=== PATIENT | female | born 1935 ===

== ENCOUNTER → 2020-02-12 | Outpatient (CLI) | payer OTHER ==
[~2020-02-12] VITALS: Ht 180.3 cm; Wt 83.6 kg
[~2020-02-12] MED LIST: ALL DAY ALLERGY10 M3 PO; AMITRIPTYLINE H25 M4 PO; CALCIUM AMINO200 MG PO; COZAAR 50 MG TA50 M1 PO; FISH OIL 1,0001 EAC9 PO; FOLIC ACID1 MG PO; LIPITOR10 MG PO; NAPROXEN375 MG PO; SUPER B COMPLE1 EAC2 PO; SUPER THERAVIT1 EACH PO; VITAMIN B12-FO1 EAC1 PO; VITAMIN D3 COM1 EACH PO; ZINC50 MG PO
--- NOTE | ~2020-02-12 | HPC ---
[facility] [address] [place] [address] PAIN MANAGEMENT CONSULTATION Name: JESUS COX Room #: REG [facility].#: [id number] Admission: 02/12/20 Attend Phys: Niles Mascorro DO Discharge: Date of : 35 Report #: [id number] THIS REPORT FOR: cc: ROSEY - No family physician/PCP ROSEY - No family physician/PCP Niles Mascorro DO ~ CC: [facility] physician/PCP Niles Grimm DATE OF SERVICE: 02/12/2020 CHIEF COMPLAINT: Low back pain, left lower extremity pain and paresthesias. HISTORY OF PRESENT ILLNESS: As you know, the patient is a very pleasant 84-year-old female who has been referred to our service by her neurosurgeon, Dr. Donn Grimm to undergo lumbar epidural injection under fluoroscopic guidance to address lumbar radicular symptoms. The patient was seen by Dr. Grimm on 01/27/2020 for surgical discussions. It would appear the patient was not a surgical candidate based on the dictation presented as part of the preliminary paperwork. She was subsequently referred to our clinic to discuss the possibility of undergoing a lumbar epidural injection to address lumbar radicular symptoms. The patient states pain has been present for over a year. She denies injury or trauma that may have led to symptom development. The patient indicates today pain is continuous. She describes the pain as shooting, aching, throbbing, sharp, numbness and tingling. She places current pain score at 3/10, daily average at 5/10, worst pain has been is 7/10. The patient states that standing for any length of time, sitting for any length of time and ambulating tends to exacerbate symptoms. Nothing other than naproxen has been helpful for pain control. She has been referred to our service to discuss epidural injections under fluoroscopic guidance to address lumbar radicular pain. PAST MEDICAL HISTORY: 1. Dyslipidemia. 2. Hypertension. 3. Anxiety disorder. 4. Osteoarthritis. PAST SURGICAL HISTORY: Cataract surgery. SOCIAL HISTORY: The patient denies tobacco, alcohol, IV or illicit drug use. She is a retired housewife/. 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 She is accompanied by her daughter present in room today. She is not receiving workmen's compensation nor she is trying to obtain disability benefits. She is [address] [address] PAIN MANAGEMENT CONSULTATION Name: JESUS COX Room #: REG NAYE Batista#: [id number] Admission: 02/12/20 Attend Phys: Niles Mascorro DO Discharge: Date of : 35 Report #: [id number] not in litigation in regards to pain. ALLERGIES: No known drug allergies. CURRENT MEDICATIONS: Zinc gluconate 50 mg once a day, vitamin B complex 1 tab per day, multivitamin 1 tab per day, folic acid 1 mg once a day, cyanocobalamin 2000 mcg per day, omega-3 fish oil 1200 mg once a day, cetirizine 10 mg p.o. every day, naproxen 375 mg once a day, losartan 75 mg once a day, amitriptyline 25 mg once a day, atorvastatin 10 mg per day. IMAGING: MRI lumbar spine obtained 12/24/2019 shows an old compression fracture at L1 with mild retropulsion. There is mild superior L3 wedge compression fracture, appears chronic in nature. There are degenerative changes throughout the lumbar spine with congenitally short pedicles. There is mild anterior subluxation of L3 on L4, mild retrolisthesis of L4 on L5, mild L2-L3 and L3-L4 spinal stenosis. There is no significant neural foraminal stenosis. PQRS: The patient has known arthritic changes of the bilateral knees, right greater than left, bilateral hands and lumbar spine. No rheumatoid arthritis. She is placing current pain score 5/10. She is a fall risk, but has not had a fall in last 3 months. She utilizes a cane for ambulation and balance. She is not on blood thinners, but is treated for hypertension. She is not on chronic opioids and has a low opioid addiction potential. Pain impact score is 8 of 70 indicating mild interference of daily activities secondary to pain. PHYSICAL EXAMINATION: VITAL SIGNS: Blood pressure 130/67, pulse 90, respiratory rate 16 and unlabored. The patient is 100% on room air. Height 5 feet 11 inches tall, weight 184.4 pounds, BMI calculated 25.7. GENERAL: Well-developed, well-nourished, well-hydrated 84-year-old female, appears stated age, placing current pain score at 5/10. HEENT: Normocephalic, atraumatic. Pupils equal, round, reactive to light. Extraocular muscles are intact. Sclerae nonicteric without injection. NEUROLOGIC: Cranial nerves 2-12 grossly intact. Speech fluent. The patient deemed a good historian. LUNGS: Clear, no wheeze, rhonchi or rales. CARDIOVASCULAR: Regular. No appreciable gallop or rub. ABDOMEN: Soft. Normoactive bowel sounds. EXTREMITIES: Show no clubbing, no cyanosis, and no edema. MUSCULOSKELETAL: Lower extremity strength equal and symmetrical 5/5. She is intact to light touch from L1 through S2 dermatomes. Seated straight leg raising negative. Supine straight leg raising positive on the left. Mena's test is negative. Modified Gaenslen's positive for axial low back pain. Ankle clonus negative. Babinski is negative. Deep tendon reflexes 2+/4 at patella and Achilles. Lumbar provocation testing is met with slight increase in axial back pain, no radiation of symptoms. [facility] [address] [place] [address] PAIN MANAGEMENT CONSULTATION Name: KENNYJESUS Room #: REG [facility] Lester#: [id number] Admission: 02/12/20 Attend Phys: Niles Mascorro DO Discharge: Date of : 35 Report #: [id number] ASSESSMENT: 1. Symptomatic lumbar radiculopathy. 2. Displacement of lumbar intervertebral disk with radiculopathy. 3. Lumbosacral spondylosis with radiculopathy. 4. Lumbar degeneration. 5. Chronic intractable pain. PLAN: 1. The patient has been referred to our service to discuss the treatment options for lumbar radicular symptoms. The patient saw Dr. Donn Grimm at visit of 01/27/2020 where she was advised to trial conservative treatment options. It does appear that at present she is not a surgical candidate given the lack of any major lateralizing features in her MRI. She was subsequently referred to our clinic to discuss the treatment options for lumbar radiculopathy. We discussed the following with the patient today. We discussed physical therapy, stretching exercises, and core strengthening techniques as a treatment course. We discussed medication management utilizing neuropathic pain medications such as nortriptyline, amitriptyline, Cymbalta, Lyrica or gabapentin. We discussed lumbar epidural injection for which the patient was referred to our clinic and finally surgical options of either spinal cord stimulator or decompressive surgery via Neurosurgery. After reviewing the risks and benefits of all proposed treatment options, the patient chose to undergo lumbar epidural injection under fluoroscopic guidance. 2. The patient was advised due to third alliance party payer restrictions, authorization would have to be obtained before she could undergo a lumbar epidural injection. Authorization process may take anywhere from 3-7 working days. We will begin this process immediately. We will have the patient return once we have completed this process. We have tentatively placed the patient on an appointment time of next Monday, but certainly we will adjust the date if we are able to obtain this authorization earlier. No medication changes made at today's visit. The patient will continue current medical therapy as previously prescribed. 3. We will see the patient back in followup visit once we have achieved authorization for her to undergo a first in the series of lumbar epidural injections to address lumbar radicular symptoms involving the low back and left lower extremity. 4. We wish to thank Dr. Donn Grimm for the referral of the patient to our clinic. We will keep you apprised of response to treatment as we address lumbar radicular symptoms. Again, we wish to thank you for the opportunity to see this patient in consultation. By: [id number] Niles Mascorro DO /nt
[2020-02-12 13:00] VITALS: BP 138/67
--- NOTE | 2020-02-12 13:14 | NUR ---
Pain Clinic Assessment: 1. History of Osteoarthritis: RIGHT KNEE HANDS History of Rheumatoid Arthritis: 2. Height: 5 ft. 11 in. 180.3 cm. Weight: 184.4 lb. oz. 83.643 kg. Patient's BMI: 25.7 3. Vital Signs: BP: 138/67 Pulse: 90 Resp: 16 Temp: 02 Sat: 100 ECG Mon: 4. Pain Intensity: 5 5. Fall Risk: Dizziness: Y Needs help standing or walking: Y Fallen in the last 3 months: N Fall risk comments: 6. Patient on Blood Thinner: None 7. History of Hypertension: Y 8. Opioid Therapy greater than 6 weeks: N Opiate Contract Signed: 9. Risk Assessment Tool Provided: 0-LOW RISK 10. Functional Assessment Tool: 11. Recreational Drug Use: Never Drug Type: Tobacco Use: Never Smoker Tobacco Type: Amount or Packs/day: How Many Years: Alcohol Use: No Frequency: Quant:
== END ==
LOC: PAIN 06:53
DX: M51.16 Intervertebral disc disorders with radiculopathy, lumbar region (principal); M47.27 Other spondylosis with radiculopathy, lumbosacral region; I10 Essential (primary) hypertension; F41.9 Anxiety disorder, unspecified; M19.90 Unspecified osteoarthritis, unspecified site; E78.5 Hyperlipidemia, unspecified; G89.29 Other chronic pain; G31.89 Other specified degenerative diseases of nervous system; Z79.84 Long term (current) use of oral hypoglycemic drugs; Z79.811 Long term (current) use of aromatase inhibitors; Z79.899 Other long term (current) drug therapy

== ENCOUNTER → 2020-02-18 | Outpatient (CLI) | payer OTHER ==
[~2020-02-18] VITALS: Ht 152.4 cm; Wt 83.5 kg
[2020-02-18 12:49] VITALS: BP 134/69
--- NOTE | 2020-02-18 12:55 | NUR ---
Pain Clinic Assessment: 1. History of Osteoarthritis: RIGHT KNEE HANDS History of Rheumatoid Arthritis: 2. Height: 5 ft. 3 in. 160.0 cm. Weight: 134.0 lb. oz. 60.782 kg. Patient's BMI: 23.7 3. Vital Signs: BP: 134/69 Pulse: 79 Resp: 16 Temp: 02 Sat: 97 ECG Mon: 4. Pain Intensity: 9-10 5. Fall Risk: Dizziness: N Needs help standing or walking: Y Fallen in the last 3 months: Y Fall risk comments: 6. Patient on Blood Thinner: None 7. History of Hypertension: Y 8. Opioid Therapy greater than 6 weeks: N Opiate Contract Signed: 9. Risk Assessment Tool Provided: 0-LOW RISK 10. Functional Assessment Tool: 11. Recreational Drug Use: Never Drug Type: Tobacco Use: Never Smoker Tobacco Type: Amount or Packs/day: How Many Years: Alcohol Use: No Frequency: Quant:
[2020-02-18 13:25] VITALS: BP 147/72
--- NOTE | 2020-02-18 14:07 | NUR ---
Pain Clinic Assessment: 1. History of Osteoarthritis: Not Applicable History of Rheumatoid Arthritis: Not Applicable 2. Height: 5 ft. 0 in. 152.4 cm. Weight: 184.0 lb. oz. 83.462 kg. Patient's BMI: 35.9 3. Vital Signs: BP: 147/72 Pulse: 84 Resp: 16 Temp: 02 Sat: 98 ECG Mon: 4. Pain Intensity: 5 5. Fall Risk: Dizziness: N Needs help standing or walking: Y Fallen in the last 3 months: N Fall risk comments: 6. Patient on Blood Thinner: None 7. History of Hypertension: Y 8. Opioid Therapy greater than 6 weeks: N Opiate Contract Signed: 9. Risk Assessment Tool Provided: 10. Functional Assessment Tool: 11. Recreational Drug Use: Never Drug Type: Tobacco Use: Never Smoker Tobacco Type: Amount or Packs/day: How Many Years: Alcohol Use: No Frequency: Quant:
--- NOTE | 2020-02-19 11:57 | HPC ---
[facility] [place] [address] PAIN MANAGEMENT CONSULTATION Name: JESUS COX Room #: REG [facility] M..#: [id number] Admission: 02/18/20 Attend Phys: Niles Mascorro DO Discharge: Date of : 35 Report #: [id number] THIS REPORT FOR: cc: FAM - No family physician/PCP FAM - No family physician/PCP Niles Mascorro DO ~ DATE OF SERVICE: 02/18/2020 CHIEF COMPLAINT: Low back pain, bilateral lower extremity pain with paresthesias, left greater than right. HISTORY OF PRESENT ILLNESS: As you know, the patient is a very pleasant 84-year-old female referred to our service by her neurosurgeon, Dr. Donn Grimm to undergo lumbar epidural injection under fluoroscopic guidance to address lumbar radicular symptoms. We saw the patient in consultation per the request of Dr. Grimm on 02/12/2020. Due to third libertarian payer restrictions, authorization had to be obtained before the patient could undergo a lumbar epidural injection. She returns today in followup visit 02/18/2020, having received authorization to undergo epidural injection. She is placing her current pain score of 5/10. States the majority of her symptoms today are involving low back and the right lower extremity, though at our last visit, it was involving more the left lower extremity. She indicates that the pain is aching, intermittent and throbbing in sensation, exacerbated with weather and activities, improves with rest and medications. She returns today in followup visit with authorization to undergo lumbar epidural injection under fluoroscopic guidance. ALLERGIES: No known drug allergies. CURRENT MEDICATIONS: See chart. SOCIAL HISTORY: The patient denies tobacco, alcohol, IV or illicit drug use. 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 IMAGING: No new imaging available. PQRS: The patient has known arthritic changes of bilateral knees, bilateral hands and lumbar spine. No rheumatoid arthritis. She is placing her current pain score 5/10. She is a fall risk, but has not had a fall in last 3 months. She is utilizing ambulatory devices for balance. She is not on blood thinners, but is treated for hypertension. She is not on chronic opioids, has a low opioid addiction potential based on our assessment tool. Pain impact is 8 of 70 indicating mild interference of daily activities [place] [address] PAIN MANAGEMENT CONSULTATION Name: JESUS COX Room #: REG [facility] Batista#: [id number] Admission: 02/18/20 Attend Phys: Niles Mascorro DO Discharge: Date of : 35 Report #: [id number] PHYSICAL EXAMINATION: VITAL SIGNS: Blood pressure 147/72, pulse 84, respiratory rate 16 and unlabored. The patient is 98% on room air. Height 5 feet 4 inches tall, weighs 184 pounds, BMI calculated 35.9. GENERAL: Well-developed, well-nourished, well-hydrated exogenously obese 84-year-old female appearing stated age, pain is rated today 5/10. HEENT: Normocephalic, atraumatic. Pupils equal, round, reactive to light. Speech fluent. EXTREMITIES: Show no clubbing, no cyanosis, and no edema. MUSCULOSKELETAL: Seated straight leg raising negative. Supine straight leg raising remains positive on the left and mildly positive on the right. Mena's test negative. Modified Gaenslen's positive for axial low back pain. Ankle clonus negative. Babinski is negative. Gait appears slightly antalgic favoring right lower extremity today. Deep tendon reflexes remain 2+/4 bilaterally. ASSESSMENT: 1. Symptomatic lumbar radiculopathy. 2. Displacement of lumbar intervertebral disk with radiculopathy. 3. Lumbosacral spondylosis with radiculopathy. 4. Lumbar degeneration. 5. Chronic intractable pain. PLAN: 1. The patient returns today in followup visit having received authorization to undergo lumbar epidural injection under fluoroscopic guidance to address the request of Dr. Donn Grimm. The patient was advised of the risks and the benefits of a lumbar epidural injection. These risks include but are not necessarily limited to bleeding, bruising, infection, worsening pain, no relief of pain, temporary or permanent muscle weakness, temporary or permanent nerve damage, possible paralysis, post-dural puncture headache and . The patient states understood and wished to proceed. 2. No medication changes made at today's visit. 3. We will see the patient back in followup visit on an as needed basis for possible next in the series of lumbar epidural injections. PROCEDURE NOTE DESCRIPTION OF PROCEDURE: L5-S1 parasagittal epidural steroid injection under fluoroscopic guidance. This is the first procedure of the first series that the patient is undergoing. After obtaining written consent, the patient was taken back to the fluoroscopy suite, placed in a prone position with pillow under the abdomen to decrease lumbar lordosis. The skin overlying the lumbosacral area was then prepped and draped in aseptic fashion. The L5-S1 vertebral interspace was then identified [address] [address] PAIN MANAGEMENT CONSULTATION Name: JESUS COX Room #: REG NAYE Batista#: [id number] Admission: 02/18/20 Attend Phys: Niles aMscorro DO Discharge: Date of : 35 Report #: [id number] by AP fluoroscopy. The skin and subcutaneous tissue overlying the target site of injection was anesthetized with 3 mL 1% lidocaine. A 20-gauge 3-1/2 inch Tuohy needle was then advanced under fluoroscopic guidance towards the epidural space using a parasagittal approach. The epidural space was identified using loss of resistance to air technique. After negative aspiration for heme or cerebrospinal fluid, a total of 1 mL of Omnipaque was injected. A lumbar epidurogram was confirmed using both AP and lateral fluoroscopy. After negative aspiration for heme or cerebrospinal fluid, 5 mL of a solution containing 2 mL 40 mg per mL, 80 mg total triamcinolone along with 3 mL lidocaine 1% was injected in increments. Contrast spread was noted posterior epidural space. The needle was then retracted approximately half way and needle tract flushed with 1 mL of 1% lidocaine. Needle was then removed. There were no apparent sensory or motor deficits in the lower extremity following the procedure. A sterile bandage was placed over the injection site. The heart rate, pulse, oximetry and blood pressure were continuously monitored after the procedure. There were no apparent complications. The patient tolerated the procedure well and was carefully escorted to the recovery room in stable condition. There were no apparent complications. After meeting discharge criteria, the patient was then discharged home. <ELECTRONICALLY SIGNED> By: Niles Mascorro DO 02/19/20 [id number] Niles Mascorro DO /dominic
== END | disposition home or self-care (01) ==
LOC: PAIN 06:42
DX: M51.16 Intervertebral disc disorders with radiculopathy, lumbar region (principal); M47.27 Other spondylosis with radiculopathy, lumbosacral region; G89.29 Other chronic pain; Z98.890 Other specified postprocedural states; Z79.899 Other long term (current) drug therapy

== ENCOUNTER → 2020-07-01 | Outpatient (CLI) | payer OTHER ==
[~2020-07-01] VITALS: Ht 152.4 cm; Wt 84.3 kg
[~2020-07-01] MED LIST changes: +VOLTAREN GEL 1100 G1 TOP
[2020-07-01 14:38] VITALS: BP 154/87
--- NOTE | 2020-07-01 14:50 | NUR ---
Pain Clinic Assessment: 1. History of Osteoarthritis: Not Applicable History of Rheumatoid Arthritis: Not Applicable 2. Height: 5 ft. 0 in. 152.4 cm. Weight: 185.8 lb. oz. 84.278 kg. Patient's BMI: 36.3 3. Vital Signs: BP: 154/87 Pulse: 85 Resp: 16 Temp: 02 Sat: 98 ECG Mon: 4. Pain Intensity: 8-9 5. Fall Risk: Dizziness: N Needs help standing or walking: N Fallen in the last 3 months: N Fall risk comments: 6. Patient on Blood Thinner: None 7. History of Hypertension: Y 8. Opioid Therapy greater than 6 weeks: N Opiate Contract Signed: 9. Risk Assessment Tool Provided: 0-LOW RISK 10. Functional Assessment Tool: 11. Recreational Drug Use: Never Drug Type: Tobacco Use: Never Smoker Tobacco Type: Amount or Packs/day: How Many Years: Alcohol Use: No Frequency: Quant:
--- NOTE | 2020-07-07 12:21 | HPC ---
[facility] [place] [address] PAIN MANAGEMENT CONSULTATION Name: JESUS COX Room #: REG [facility]..#: [id number] Admission: 07/01/20 Attend Phys: Niles Mascorro DO Discharge: Date of : 35 Report #: [id number] THIS REPORT FOR: cc: FAM - No family physician/PCP FAM - No family physician/PCP Niles Mascorro DO ~ DATE OF SERVICE: 07/01/2020 REFERRING PHYSICIAN: Donn Grimm M.D. CHIEF COMPLAINT: Right knee pain. HISTORY OF PRESENT ILLNESS: As you know, the patient is a very pleasant 84-year-old female who was referred to our service by her neurosurgeon, Dr. Donn Grimm to undergo lumbar epidural injections under fluoroscopic guidance to address lumbar radicular pain. The patient has done very well with epidural injections, the most recent provided in January gave significant pain improvement. The patient reports pain improvement that is ongoing of about 90%. She has begun to experience posterior right knee pain exacerbated with standing and walking. Pain is resolved with sitting and lying down. This distribution of symptoms is different from her lumbar radicular symptoms. She denies injury or trauma to the area, but has been diagnosed with osteoarthritic changes of the bilateral knees in the past. She returns today to discuss treatment options for right posterior knee pain. ALLERGIES: No known drug allergies. CURRENT MEDICATIONS: Amitriptyline 25 mg p.o. at bedtime, losartan 50 mg once a day, multivitamin 1 tab per day, calcium carbonate 1 tab per day, cyanocobalamin 1 tablet per day, folic acid 1 mg once a day, vitamin C 1 tab per day. SOCIAL HISTORY: The patient denies tobacco, alcohol, IV or illicit drug use. 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 IMAGING: No new imaging available. PQRS: The patient has known arthritic changes of bilateral knees, bilateral hands and lumbar spine. No rheumatoid arthritis. She is placing pain intensity 8-9/10. She is not a fall risk nor has she had a fall in last 3 months. She is not on blood thinners, but she was treated for hypertension. She is not on chronic opioids. She has a low opiate addiction potential. Pain impact score 8 of 70 indicating mild interference of daily activities secondary to pain. PHYSICAL EXAMINATION: [facility] [address] [place] [address] PAIN MANAGEMENT CONSULTATION Name: JESUS COX Room #: REG [facility] [place]#: [id number] Admission: 07/01/20 Attend Phys: Niles Mascorro DO Discharge: Date of : 35 Report #: [id number] VITAL SIGNS: Blood pressure 154/87, pulse 85, respiratory rate 16 and unlabored. The patient is 98% on room air. Height 5 feet tall, weight 185.8 pounds, BMI calculated 36.3. GENERAL: Well-developed, well-nourished, well-hydrated exogenously obese 84-year-old female appearing stated age, pain is rated anywhere from 8-9/10. HEENT: Normocephalic, atraumatic. Pupils equal, round and reactive. Speech fluent. EXTREMITIES: Show no clubbing, no cyanosis, no edema. MUSCULOSKELETAL: The patient does have some palpatory tenderness over the posterior aspect of the knee. There is a small fluid collection in the posterior knee consistent with a Richard cyst. Active and passive range of motion of the right knee causes slight intensification of pain. Anterior and posterior drawer tests are negative. Medial collateral and lateral collateral ligaments appear intact and stable. Pain is elicited with standing from a seated position as well as ambulating. Slight rotation of the knee while standing causes intensity of pain is about a level of 9/10 right in the posterior aspect of the knee. ASSESSMENT: 1. Right knee pain. 2. Right knee osteoarthritis. 3. Possible right knee meniscal injury. PLAN: 1. The patient has returned today with right knee pain consistent with a possible meniscal injury. She also has what appears to be a Richard cyst forming on the posterior aspect of the right knee, again consistent with a meniscal injury. The patient and I discussed this at length today. The fact that she experiences pain exacerbated with standing, walking, improves with lying down and seated position is even more consistent with right knee pathology. We recommend the following treatment option. 2. The patient will be sent for x-ray imaging of the right knee. X-ray imaging will be obtained today and results can be provided to the patient tomorrow. The patient was advised that even x-ray imaging will only show bony changes, will not show any soft tissue changes consistent with the meniscal injury, though a loss of joint space is a typical heralding sign of a meniscal wear. The patient can contact us in regards to the findings of this x-ray imaging tomorrow. 3. The patient was provided a prescription of diclofenac gel applied topically up to 4 times a day. I gave the patient 100 gram tubes x 3 with 2 refills. The patient will apply this up to 4 times a day to the affected area. She will watch for side effects with its use. If she notes any side effects, discontinue immediately. 4. The patient will be established an appointment as quickly as possible to undergo intra-articular right knee injection under fluoroscopic guidance. We will begin the authorization process immediately and contact the patient once it has been completed. We will have her then return to undergo right knee [facility] [address] [place] [address] PAIN MANAGEMENT CONSULTATION Name: JESUS COX Room #: REG [place]#: [id number] Admission: 07/01/20 Attend Phys: Niles Mascorro DO Discharge: Date of : 35 Report #: [id number] injection in hopes of improving her right knee pain. 5. We did discuss the possibility of having the patient see Orthopedics. At this time, the patient wishes to trial conservative option, but is not resistant to the concept of surgery if necessary. She will consider this option. 6. We will see the patient back in followup visit once we have achieved authorization to undergo a right intra-articular knee injection. <ELECTRONICALLY SIGNED> By: Niles Mascorro DO 07/07/20 1221 [id number] Niles Mascorro DO /nt
== END ==
LOC: PAIN 07:00 → RAD 07:00 → PAIN 13:07
PROVIDERS: ATTEND Anesthesiology Pain Medicine
DX: M17.11 Unilateral primary osteoarthritis, right knee (principal); Z79.899 Other long term (current) drug therapy